=== PATIENT | female | born 1990 | race Caucasian/White ===

== ENCOUNTER 2018-05-05 13:36 | Outpatient (CLI) | payer BC | END 2018-05-05 13:37 | disposition home or self-care (01) | LOC: BICULT 13:36 | PROVIDERS: ATTEND Family Medicine | DX: Z34.82 Encounter for supervision of other normal pregnancy, second trimester (principal); Z3A.25 25 weeks gestation of pregnancy | CPT/HCPCS: 76805 ==

== ENCOUNTER 2018-08-12 07:58 | Inpatient (IN) | payer BC ==
[2018-08-12] MEDS ORDERED: Lidocaine 1% (PF) 30 ML VIAL SC PRN (08:30)
[2018-08-12] MEDS ORDERED: Lactated Ringer's 1,000 ML IV SCH (08:30)
[2018-08-12] MEDS ORDERED: Butorphanol Tartrate 1 MG/ML VIAL SLOW IVP PRN (08:30)
[2018-08-12] MEDS ORDERED: Ibuprofen 800 MG TAB PO PRN (08:30)
[2018-08-12] MEDS ORDERED: HYDROcodone/Acetaminophen 5/325 mg Tablet PO PRN ×3 (08:30→12:56)
[2018-08-12] MEDS ORDERED: Promethazine HCl 25 MG/ML VIAL IM PRN ×2 (08:30→09:00)
--- NOTE | 2018-08-12 08:30 | PDOC.EVN ---
Event Note - Event Note Event Note: Direct admission for Dr Lata Hernandez. I was asked to place admit orders as courtesy. GBS negative. H&P by admitting physician.
[2018-08-12] MEDS ORDERED: Fentanyl 4 mcg/Bup 0.1% Cadd 100 ML ONE (08:38)
[2018-08-12 08:48] LABS: Hemoglobin 13.5 g/dL (12.0-16.0); Mean Corpuscular HGB CONC 33.7 g/dL (32.0-36.0); Mean Corpuscular Hemoglobin 29.5 pg (27.0-31.0); Mean Corpuscular Volume 87.7 fL (78.0-98.0); Platelet Count 251 thou/uL (130-400); RBC Distribution Width 11.7 % (11.5-14.5); Red Blood Cell (RBC) Count 4.55 mill/uL (4.20-5.40); White Blood Cell (WBC) Count 12.2 thou/uL (4.8-10.8)
[2018-08-12] MEDS ORDERED: Fentanyl 4 mcg/Bupivacaine 0.1% Cassette 100 ML EPIDURAL SCH (09:00)
[2018-08-12] MEDS ORDERED: diphenhydrAMINE 50 MG/ML VIAL IVP PRN (09:00)
[2018-08-12] MEDS ORDERED: Lactated Ringer's 500 ML IV PRN (09:00)
[2018-08-12] MEDS ORDERED: Acetaminophen 325 MG TAB PO PRN (09:00)
[2018-08-12] MEDS ORDERED: Eucerin (Mineral Oil/Petrolatum,White) 30 gm Jar TOP PRN (09:00)
[2018-08-12] MEDS ORDERED: Naloxone HCl 0.4 mg/ml Vial IVP PRN ×2 (09:00)
[2018-08-12] MEDS ORDERED: Ondansetron HCl/PF 4 MG/2 ML Vial IVP PRN ×2 (09:00→12:56)
[2018-08-12] MEDS ORDERED: ePHEDrine/0.9% NaCl/PF SYRINGE 50 mg/10 ml SLOW IVP PRN (09:00)
[2018-08-12] MEDS ORDERED: Communication Order-Pharmacy FS SCH (09:00)
[2018-08-12 09:27] LABS: HIV (1/2) Antibody/Antigen Non-Reactive (NonReactive); HIV 1/2 INDEX 0.09 S/CO (<1.00); Hep B Surf Ag Non-Reactive S/CO (NonReactive); Syphilis Antibody Nonreactive (Nonreactive); Syphilis Antibody Index 0.06 S/CO (<1.00 Non-Reactive)
[2018-08-12] MEDS: NS / Oxytocin 40 units/1000ml 1,000 ML IV PRN ×2 (10:00→12:34)
[2018-08-12 11:39] VITALS: BMI 23.2
[2018-08-12] MEDS ORDERED: Milk Of Magnesia 30 ML UDCUP PO PRN (12:56)
[2018-08-12] MEDS ORDERED: Bisacodyl 10 MG SUPP PR PRN (12:56)
[2018-08-12] MEDS ORDERED: diphenhydrAMINE 25 MG CAP PO PRN (12:56)
[2018-08-12] MEDS ORDERED: Preparation H Ointment 28 GM TUBE PR PRN (12:56)
[2018-08-12] MEDS ORDERED: Lanolin Ointment 7 GM TUBE TOP PRN (12:56)
[2018-08-12] MEDS ORDERED: Benzocaine/Menthol 20-0.5% 60 ML CAN TOP PRN (12:56)
[2018-08-12] MEDS ORDERED: NS / Oxytocin 40 units/1000ml 1,000 ML IV SCH (12:56)
[2018-08-12] MEDS ORDERED: Acetaminophen/Codeine 30-300mg Tablet PO PRN (12:56)
[2018-08-12] MEDS: Ibuprofen 800 MG TAB PO SCH ×2 (14:09→22:08)
[2018-08-12] MEDS: Docusate Calcium (SURFAK) 240 MG CAP PO SCH (22:07)
[2018-08-13] MEDS: Ibuprofen 800 MG TAB PO SCH ×4 (06:32→21:26)
[2018-08-13] MEDS: Prenatal Vitamin 1 TAB PO SCH (08:53)
[2018-08-13] MEDS: Docusate Calcium (SURFAK) 240 MG CAP PO SCH ×2 (08:53→21:26)
[2018-08-13 23:54] VITALS: TEMP 98.1
[2018-08-14] MEDS: Ibuprofen 800 MG TAB PO SCH (06:12)
[2018-08-14 07:53] VITALS: BP 122/78
[2018-08-14] MEDS: Prenatal Vitamin 1 TAB PO SCH (08:41)
[2018-08-14] MEDS: Docusate Calcium (SURFAK) 240 MG CAP PO SCH (08:41)
== END 2018-08-14 11:40 | disposition home or self-care (01) | DRG 807 ==
LOC: L&D/OP 07:58 → L&D 09:24 → 3SW 15:32
PROVIDERS: ADMIT Family Medicine; ATTEND Family Medicine
PROC: 10E0XZZ Delivery of Products of Conception, External Approach (ICD-10-PCS; principal; 2018-08-12)
PROC: 0KQM0ZZ Repair Perineum Muscle, Open Approach (ICD-10-PCS; 2018-08-12)
PROC: 10907ZC Drainage of Amniotic Fluid, Therapeutic from Products of Conception, Via Natural or Artificial Opening (ICD-10-PCS; 2018-08-12)
DX: O70.1 Second degree perineal laceration during delivery (principal); Z37.0 Single live birth; O80 Encounter for full-term uncomplicated delivery; Z3A.39 39 weeks gestation of pregnancy
CPT/HCPCS: 85027; 86780; 86850; 86900; 86901; 87340; 87389; 99285; J2001

== ENCOUNTER 2019-11-03 10:04 | Outpatient (CLI) | payer BC ==
--- NOTE | 2019-11-03 11:42 | ULT ---
EXAM: US Abdominal CLINICAL HISTORY: Left sided abdominal pain. Patient is .. COMPARISON: None. FINDINGS: Pancreas: The head and proximal pancreatic body have a normal echotexture. The remainder the pancrea s is obscured by bowel gas IVC: Visualized IVC has a normal caliber. Aorta: Visualized aorta has a normal caliber. Liver:Normal hepatic parenchymal echotexture. No hepatic masses or intrahepatic biliary dilatation. T he contour of the hepatic margin is maintained. Right hepatic lobe measures 13 cm Gallbladder: Small amount of sludge within the lumen of the gallbladder. Gallbladder wall is not thic kened. No pericholecystic fluid. Magana's sign:Negative CBD: Common bile duct diameter 0.21 cm Portal vein: Patent. Appropriate directional flow. Right kidney: Normal cortical echotexture. No hydronephrosis. Right kidney measuring 3.2 x 10.5 x 5. 2 cm in length. Left kidney: Normal cortical echotexture. No hydronephrosis . Left kidney measuring 9.8 x 4.9 x 4.2 cm in length Spleen: Normal echotexture, measuring 7.7 cm in maximum dimension IMPRESSION: Small amount of sludge within the gallbladder. Otherwise, unremarkable exam.
--- NOTE | 2019-11-03 11:50 | ULT ---
TRANSABDOMINAL AND ENDOVAGINAL PELVIC ULTRASOUND: HISTORY: Pelvic pain. patient. Heavy bleeding and cramping. COMPARISON: 07/25/2015 TECHNIQUE: Transabdominal and endovaginal imaging of the pelvis is performed. Ovaries are interrogated with garg -scale, color-flow, Doppler imaging and spectral wave-form analysis. FINDINGS: Uterus: No myometrial masses. Uterus measurin.5 x 4.5 x 7.1 cm. Endometrium: No evidence of a gestational sac, yolk sac or pole. Endometrium is thickened. Endometrium diameter: 1.3 cm. Free fluid: None Right ovary: Normal echotexture. Right ovary measurement: 1.6 x 2.6 x 1.3 cm. Left ovary: Normal echotexture. Left ovary measurements: 2.6 x 2.4 x 3.8 cm. OVARIAN DOPPLER: There is vascular flow to the left and right ovary. IMPRESSION: No sonographic evidence of intrauterine gestation. Correlate with serum beta hCG. Differential consid erations include an early intrauterine versus a missed spontaneous versus a sonographically occult ectopic. RECOMMENDATION: Follow-up ultrasound and serial beta HCG. CODE T Transcribed Date/Time: 11/03/2019 11:55 AM
== END 2019-11-03 10:05 | disposition home or self-care (01) ==
LOC: SCSULT 10:04
PROVIDERS: ATTEND Family Medicine
DX: R10.2 Pelvic and perineal pain (principal); N91.2 Amenorrhea, unspecified
CPT/HCPCS: 76856; 93975